=== PATIENT | female | born 1935 | race Caucasian/White ===

== ENCOUNTER 2021-07-03 12:18 | Inpatient (IN) | payer OTHER ==
[~2021-07-03] VITALS: Ht 160 cm; Wt 68.8 kg
[~2021-07-03 12:18] MED LIST: ASPI-1012 PO; CHOL100040 PO; CITA-107 PO; FENT25PAT TD; LISI20TA24 PO; SIMV40TA59 PO; TRAZ-187 PO
[2021-07-03] MEDS ORDERED: NITROGLYCERIN 1GM OINT 1 INCH/1GM TD ONE ×2 (13:00→15:35)
[2021-07-03] MEDS ORDERED: ASPIRIN 325MG TAB PO ONE (13:00)
[2021-07-03] MEDS ORDERED: ONDANSETRON 4MG INJ IVP ONE (13:00)
[2021-07-03 13:04] LABS: BASOPHILS % (AUTO) 0.5 % (0.0-5.0); EOSINOPHILS % (AUTO) 0.6 % (0.0-8.0); HEMATOCRIT 33.1 % (36-48); LYMPHOCYTES % (AUTO) 14.8 % (21.0-51.0); MEAN CORPUSCULAR HEMOGLOBIN 30.9 pg (27.0-33.0); MEAN CORPUSCULAR HGB CONC 31.1 g/dL (32.0-36.0); MEAN CORPUSCULAR VOLUME 99.4 fL (79-99); MONOCYTES % (AUTO) 8.2 % (3.0-13.0); NEUTROPHILS % (AUTO) 75.6 % (40.0-77.0); PLATELET COUNT (AUTO) 267 K/uL (130-400); RED BLOOD CELL COUNT(AUTO) 3.33 MIL/uL (4.00-5.50); RED CELL DISTRIBUTION WIDTH 14.3 % (11.0-15.5); WHITE BLOOD COUNT (AUTO) 6.6 K/uL (4.8-10.8)
[2021-07-03 13:22] LABS: ALBUMIN 3.3 g/dL (3.5-5.0); BILIRUBIN,TOTAL 0.5 mg/dL (0.2-1.0); CREATININE 1.5 mg/dL (0.5-1.5); POTASSIUM 4.8 mmol/L (3.5-5.1); TOTAL PROTEIN, SERUM 6.8 g/dL (6.0-8.3)
[2021-07-03] MEDS ORDERED: LISI10TA24 PO (13:34)
[2021-07-03] MEDS ORDERED: NITR0.4T50 SL (13:34)
[2021-07-03] MEDS ORDERED: ACET-2079 PO (13:35)
[2021-07-03 13:43] LABS: B-TYPE NATRIURETIC PEPTIDE 3400 pg/mL (0-100)
[2021-07-03] MEDS ORDERED: FUROSEMIDE 40MG VIAL IV ONE (14:30)
[2021-07-03] MEDS ORDERED: FUROSEMIDE 40MG VIAL ONE (15:35)
[2021-07-03 16:43] LABS: APPEARANCE,URINE Clear (CLEAR); BILIRUBIN,URINE Negative (NEGATIVE); COLOR,URINE Yellow (YELLOW); GLUCOSE, URINE (UA) Negative (NEGATIVE); KETONES,URINE Negative (NEGATIVE); LEUKOCYTE ESTERASE ,URINE Trace (NEGATIVE); NITRATE,URINE Negative (NEGATIVE); OCCULT BLOOD,URINE Negative (NEGATIVE); PROTEIN,URINE Negative (NEGATIVE); UROBILINOGEN,URINE 0.2 mg/dL (0.2-1.0)
[2021-07-03 16:56] LABS: RBC,URINE 0-1 /HPF (0-1)
[2021-07-03 16:57] LABS: BACTERIA,URINE Rare /HPF (None Seen); SQUAMOUS EPITHELIAL CELL,UR Rare /HPF (0-2)
[2021-07-03 18:00] VITALS: BP 107/49
[2021-07-03 18:16] LABS: INR 1.02 (0.85-1.15); PROTHROMBIN TIME 11.1 SEC (9.6-11.6)
[2021-07-03 18:18] LABS: PARTIAL THROMBOPLASTIN TIME 26.2 SEC (26.3-35.5)
[2021-07-03 19:00] VITALS: BP 121/71
[2021-07-03] MEDS: HEPARIN 25,000 UNITS/250ML D5W 250 ML IV SCH (19:32)
[2021-07-03] MEDS: SIMVASTATIN 20 MG TABLET PO SCH (22:12)
[2021-07-03] MEDS: TRAZODONE HCL 100 MG TABLET PO SCH (22:12)
[2021-07-04] VITALS (8 sets, daily range): BP systolic 68–106; BP diastolic 40–59
[2021-07-04 05:54] LABS: CREATININE 1.8 mg/dL (0.5-1.5); POTASSIUM 4.3 mmol/L (3.5-5.1)
[2021-07-04 05:58] LABS: BASOPHILS % (AUTO) 0.6 % (0.0-5.0); EOSINOPHILS % (AUTO) 2.6 % (0.0-8.0); LYMPHOCYTES % (AUTO) 23.3 % (21.0-51.0); MEAN CORPUSCULAR HEMOGLOBIN 31.2 pg (27.0-33.0); MEAN CORPUSCULAR HGB CONC 30.6 g/dL (32.0-36.0); MEAN CORPUSCULAR VOLUME 101.9 fL (79-99); MONOCYTES % (AUTO) 12.9 % (3.0-13.0); NEUTROPHILS % (AUTO) 60.1 % (40.0-77.0); PLATELET COUNT (AUTO) 286 K/uL (130-400); RED BLOOD CELL COUNT(AUTO) 3.24 MIL/uL (4.00-5.50); RED CELL DISTRIBUTION WIDTH 14.3 % (11.0-15.5); WHITE BLOOD COUNT (AUTO) 7.8 K/uL (4.8-10.8)
[2021-07-04] MEDS: CITALOPRAM 20 MG TABLET PO SCH (08:58)
[2021-07-04] MEDS: ASPIRIN 81 MG EC TAB PO SCH (08:59)
[2021-07-04] MEDS ORDERED: LISINOPRIL 10 MG TABLET PO SCH (09:00)
[2021-07-04] MEDS ORDERED: ASPIRIN 325MG TAB PO SCH (09:00)
[2021-07-04] MEDS: CLOPIDOGREL 75MG TAB PO SCH (09:00)
[2021-07-04] MEDS: ACETAMINOPHEN WITH CODEINE 1 TAB TAB PO PRN (12:31)
[2021-07-04] MEDS: HEPARIN 25,000 UNITS/250ML D5W 250 ML IV SCH (16:37)
[2021-07-04] MEDS ORDERED: METOPROLOL TARTRATE 25 MG TAB PO SCH (21:00)
[2021-07-04] MEDS: RANOLAZINE 500 MG TAB.SR.12H PO SCH (22:14)
[2021-07-04] MEDS: SIMVASTATIN 20 MG TABLET PO SCH (22:14)
[2021-07-04] MEDS: TRAZODONE HCL 100 MG TABLET PO SCH (22:14)
[2021-07-05] VITALS (11 sets, daily range): BP systolic 71–111; BP diastolic 41–68
[2021-07-05] MEDS: NITROGLYCERIN 0.4 MG SL TAB SL SCH ×3 (00:52→20:58)
[2021-07-05 02:17] LABS: BASOPHILS % (AUTO) 0.5 % (0.0-5.0); EOSINOPHILS % (AUTO) 2.5 % (0.0-8.0); HEMATOCRIT 28.2 % (36-48); LYMPHOCYTES % (AUTO) 16.7 % (21.0-51.0); MEAN CORPUSCULAR HEMOGLOBIN 32.9 pg (27.0-33.0); MEAN CORPUSCULAR VOLUME 99.6 fL (79-99); MONOCYTES % (AUTO) 10.9 % (3.0-13.0); NEUTROPHILS % (AUTO) 69.2 % (40.0-77.0); PLATELET COUNT (AUTO) 239 K/uL (130-400); RED BLOOD CELL COUNT(AUTO) 2.83 MIL/uL (4.00-5.50); RED CELL DISTRIBUTION WIDTH 14.5 % (11.0-15.5); WHITE BLOOD COUNT (AUTO) 8.3 K/uL (4.8-10.8)
[2021-07-05 02:25] LABS: CREATININE 1.8 mg/dL (0.5-1.5); POTASSIUM 4.3 mmol/L (3.5-5.1)
[2021-07-05] MEDS: ASPIRIN 81 MG EC TAB PO SCH (08:53)
[2021-07-05] MEDS: RANOLAZINE 500 MG TAB.SR.12H PO SCH ×3 (08:54→20:59)
[2021-07-05] MEDS: CLOPIDOGREL 75MG TAB PO SCH (08:54)
[2021-07-05] MEDS: CITALOPRAM 20 MG TABLET PO SCH (08:54)
[2021-07-05] MEDS ORDERED: RANOLAZINE 500 MG TAB.SR.12H PO SCH (10:00)
[2021-07-05] MEDS: SIMVASTATIN 20 MG TABLET PO SCH (20:58)
[2021-07-05] MEDS: TRAZODONE HCL 100 MG TABLET PO SCH (20:59)
[2021-07-06 00:10] VITALS: BP 82/51
[2021-07-06 04:00] VITALS: BP 104/54
[2021-07-06] MEDS: ACETAMINOPHEN WITH CODEINE 1 TAB TAB PO PRN (06:15)
[2021-07-06 07:30] VITALS: BP 103/56
[2021-07-06] MEDS ORDERED: ISOSORBIDE MONO 30MG SR TAB PO SCH (09:00)
[2021-07-06] MEDS: ASPIRIN 81 MG EC TAB PO SCH (09:31)
[2021-07-06] MEDS: RANOLAZINE 500 MG TAB.SR.12H PO SCH (09:31)
[2021-07-06] MEDS: CITALOPRAM 20 MG TABLET PO SCH (09:31)
[2021-07-06] MEDS: CLOPIDOGREL 75MG TAB PO SCH (09:32)
[2021-07-06 11:30] VITALS: BP 102/68
== END 2021-07-06 14:20 | disposition home or self-care (01) | DRG 291 ==
LOC: EDH 12:18 → OBSVTOIN 14:28 → EDHIP 14:28 → 4DH 17:28
PROVIDERS: ADMIT Internal Medicine; ATTEND Internal Medicine
DX: I13.0 Hypertensive heart and chronic kidney disease with heart failure and stage 1 through stage 4 chronic kidney disease, or unspecified chronic kidney disease (principal); I50.23 Acute on chronic systolic (congestive) heart failure; I24.9 Acute ischemic heart disease, unspecified; N18.4 Chronic kidney disease, stage 4 (severe); Q60.0 Renal agenesis, unilateral; I25.110 Atherosclerotic heart disease of native coronary artery with unstable angina pectoris; Z95.5 Presence of coronary angioplasty implant and graft; E78.5 Hyperlipidemia, unspecified; J45.909 Unspecified asthma, uncomplicated; I25.2 Old myocardial infarction; R77.8 Other specified abnormalities of plasma proteins; Z66 Do not resuscitate; I95.9 Hypotension, unspecified; Z51.5 Encounter for palliative care
CPT/HCPCS: 36415; 71045; 80048; 80053; 81001; 82550; 83874; 83880; 84484; 85025; 85610; 85730; 93005; G0378; J1644; J1940; J2405